=== PATIENT | male | born 1995 | race American Indian/Alaskan Native ===

== ENCOUNTER 2017-10-08 16:46 | Emergency (ER) | payer SELFPAY ==
[2017-10-08 16:49] VITALS: BP 140/91
== END 2017-10-08 18:20 | disposition left against medical advice (07) ==
LOC: ED 16:46
DX: L02.91 Cutaneous abscess, unspecified (principal); Z53.21 Procedure and treatment not carried out due to patient leaving prior to being seen by health care provider